=== PATIENT | female | born 1965 | race Caucasian/White ===

== ENCOUNTER 2018-06-26 18:27 | Emergency (ER) | payer OTHER ==
[~2018-06-26] VITALS: Ht 170.2 cm; Wt 72.6 kg
[~2018-06-26 18:27] MED LIST: ACETAMINOPHEN-1 EAC1 PO; MEDROLDOSEPACK PO; PROAIR HFA8.5 GM INH; PROMETHAZINE D480 ML PO; TESSALON PERLE100 MG PO; ZPAK PO
[2018-06-26 19:22] VITALS: BP 134/101
== END 2018-06-26 19:23 | disposition home or self-care (01) ==
LOC: M.ERS 18:27
DX: S01.01XA Laceration without foreign body of scalp, initial encounter (principal); Z88.0 Allergy status to penicillin; Z90.710 Acquired absence of both cervix and uterus; Z90.49 Acquired absence of other specified parts of digestive tract; W01.198A Fall on same level from slipping, tripping and stumbling with subsequent striking against other object, initial encounter; Y92.89 Other specified places as the place of occurrence of the external cause; Y93.89 Activity, other specified; Y99.8 Other external cause status

== ENCOUNTER 2018-07-07 04:36 | Emergency (ER) | payer OTHER ==
[~2018-07-07] VITALS: Ht 170.2 cm; Wt 72.6 kg
[2018-07-07 05:06] VITALS: BP 146/86
== END 2018-07-07 05:06 | disposition home or self-care (01) ==
LOC: M.ERS 04:36
DX: S01.01XD Laceration without foreign body of scalp, subsequent encounter (principal); Z90.710 Acquired absence of both cervix and uterus; Z90.49 Acquired absence of other specified parts of digestive tract; Z88.0 Allergy status to penicillin; X58.XXXD Exposure to other specified factors, subsequent encounter